=== PATIENT | female | born 1975 | race Native Hawaiian/Other Pacific Islander ===

== ENCOUNTER 2017-09-08 13:06 | Outpatient (CLI) | payer BC | END 2017-09-08 20:23 | disposition home or self-care (01) | LOC: RAD 13:06 | DX: M25.572 Pain in left ankle and joints of left foot (principal) ==

== ENCOUNTER 2018-02-04 09:31 | Outpatient (CLI) | payer BC | END 2018-02-04 19:17 | disposition home or self-care (01) | LOC: MAMMO 09:31 | DX: Z12.31 Encounter for screening mammogram for malignant neoplasm of breast (principal) ==

== ENCOUNTER 2020-06-19 09:06 | Outpatient (CLI) | payer BC | END 2020-06-19 22:49 | disposition home or self-care (01) | LOC: MAMMO 09:06 | PROVIDERS: ATTEND Obstetrics & Gynecology | DX: Z12.31 Encounter for screening mammogram for malignant neoplasm of breast (principal) ==